=== PATIENT | male | born 1980 | race Caucasian/White ===

== ENCOUNTER → 2020-10-25 09:42 | Outpatient (REF) | payer OTHER, SELFPAY ==
--- NOTE | 2020-10-25 09:51 | ECG_ITS ---
Test Reason : PALPITATIONS Blood Pressure : / mmHG Vent. Rate : 051 BPM Atrial Rate : 052 BPM P-R Int : 000 ms QRS Dur : 096 ms QT Int : 460 ms P-R-T Axes : 000 026 055 degrees QTc Int : 423 ms Sinus bradycardia Normal ECG No previous ECGs available Referred By: Douglas Gonzalez Electronically Signed By:SUSIE LANDIS MD
== END ==
LOC: HO.CARD 09:42
PROVIDERS: PCP Psychiatry & Neurology Neurology; Visit Provider Psychiatry & Neurology Neurology
DX: G71.11 Myotonic muscular dystrophy (principal); R00.2 Palpitations
CPT/HCPCS: 93005

== ENCOUNTER → 2020-11-30 13:56 | Outpatient (REF) | payer OTHER, SELFPAY ==
--- NOTE | 2020-11-30 14:00 | CA_ITS ---
Transthoracic Echocardiogram Patient (Last, First, Middle): [place] Stone, Gender: Male Date of : 1980 Age: 40 Procedure Date: 11/30/2020 Procedure Type: Transthoracic Echocardiogram Location: OP Height: 182.88 cm Weight: 86.18 kg BSA: 2.08 m2 Heart Rate: bpm BP: 118 / 60 mmHg Referring MD: Sly Gonzalez MD Symptoms: R00.2 PALPITATIONS, G71.11 Study Quality: Fair ECG Rhythm: Sinus Conclusions: - The left ventricular systolic function is normal. The calculated ejection fraction is 62% by biplane method. - No obvious valvular pathology seen on this study. - There is mild dilatation of the sinuses of Valsalva measuring 3.60 cm and mild dilatation of the ascending aorta measuring 3.50 cm. Findings Left Ventricle Normal left ventricular cavity size. There is normal left ventricular wall thickness. The left ventricular systolic function is normal. The calculated ejection fraction is 62% by biplane method. There is no evidence of regional wall motion abnormalities. Diastolic function is normal for age. Right Ventricle Normal right ventricular cavity size and systolic function. Atria Both atria are normal in size. Aortic Valve There is a normal trileaflet aortic valve. There is no aortic valve stenosis. There is no aortic valve regurgitation. Mitral Valve The mitral valve appears normal. There is no mitral valve regurgitation. There is no mitral valve stenosis. Pulmonic Valve The pulmonic valve was not well visualized. Tricuspid Valve Normal tricuspid valve structure. There is trace tricuspid valve regurgitation. The pulmonary artery systolic pressure is normal. Great Vessels There is mild dilatation of the sinuses of Valsalva measuring 3.60 cm and mild dilatation of the ascending aorta measuring 3.50 cm. Venous The inferior vena cava is normal in size and collapses greater than 50% with inspiration. Pericardium/Pleural There is no evidence of pericardial effusion. Prior Study Comparison No prior study available for comparison. Recommendations, Care & Conclusions No obvious valvular pathology seen on this study. Measurements 2D Linear Measurements IVSd: 1.08 0.6-0.9/0.6-1.0 cm LVIDd: 4.65 3.9-5.3/4.2-5.9 cm LVIDd Index: 2.24 2.4-3.2/2.2-3.1 cm/m2 LVIDs: 3.16 2.0-3.6 cm LVPWd: 1.04 0.7-1.1 cm Ao Root: 3.60 2.1-3.5 cm LA Diam: 3.70 2.7-3.8/3.0-4.0 cm LAIDs Index: 1.78 1.5-2.3 cm/m2 LV Mass: 218.13 67-162/88-224 g LV Mass Index: 104.87 43-95/49-115 g/m2 LVOT Diam: 2.20 3.0+(-)1.3 cm 2D Systolic Function EF 4C: 67.50 >55% EF 2C: 52.60 >55% EF BiP: 61.60 >55% Mitral Valve MV Pk E: 0.67 MV PK A: 0.38 MV Decel Time: 345.00 E/A: 1.80 E'Lateral: 11.10 E'Medial: 8.38 E/E' Med: 8.00 E/E' Lat: 6.10 PHT: 101.00 MVA PHT: 2.18 Decel [place]: 1.95 Aortic Valve AoV Pk [place]: 1.09 AoV Mn [place]: 0.76 AoV VTI: 0.30 AoV Pk Grad: 5.00 Aov Mn Grad: 3.00 MICKY Cont.VTI: 2.53 LVOT LVOT Pk [place]: 0.82 LVOT Mn [place]: 0.56 LVOT VTI: 0.20 LVOT Pk Grad: 3.00 LVOT Mn Grad: 1.00 LVOT Diam: 2.20 LVOT Area: 3.80 Diastolic Function MV Pk E: 0.67 MV Pk A: 0.38 E/A: 1.80 E'Medial: 8.38 E/E' Med: 8.00 E' Laterial: 11.10 E/E' Lat: 6.10 Right Ventricle TAPSE (mm): 27.00 TVS' [place]: 9.20 Tricuspid Valve TR Pk [place]: 1.89 TR Pk Grad: 14.00 Great Vessels Aorta Ao Root-2D: 3.60 2.0-3.7 cm Sinus of Valsalva: 3.60 2.0-3.5 cm Ao Asc: 3.50 2.1-3.4 cm Pulmonary Valve PV Pk [place]: 0.94 Peak PV Grad: 4.00 Updated in Other Vendor System with Status of Final Faustino Ward MD electronically signed on 12/01/2020 10:07:36 AM with status of Final
== END ==
LOC: HO.CARD 13:56
PROVIDERS: Visit Provider Psychiatry & Neurology Neurology
DX: R00.2 Palpitations (principal); G71.11 Myotonic muscular dystrophy
CPT/HCPCS: 93306

== ENCOUNTER → 2020-12-16 11:10 | Outpatient (REF) | payer OTHER, SELFPAY ==
--- NOTE | 2020-12-16 11:22 | HM_ITS ---
Basic rhythm is normal sinus rhythm with average heart rate of 68 beats per minute. No long pauses or profound bradycardia or AV conduction abnormality noted. No atrial fibrillation, ventricular tachycardia or SVT noted Rare PVCs with total burden of 0.04% noted. Very rare PACs with total burden of less than 0.01% noted. No patient reported events MTDD
== END ==
LOC: HO.CARD 11:10
PROVIDERS: Visit Provider Internal Medicine
DX: G71.11 Myotonic muscular dystrophy (principal); R00.2 Palpitations; R00.1 Bradycardia, unspecified
CPT/HCPCS: 93242